=== PATIENT | female | born 1975 | race Caucasian/White ===

== ENCOUNTER 2017-01-17 20:02 | Emergency (ER) | payer MEDICAID ==
[2017-01-17 20:18] VITALS: RESP 20
--- NOTE | 2017-01-17 20:26 | C.PDOC ---
History Of Present Illness 41 yo femal,e hx o hld, presents with cp, she has had for has 3 weeks. pain is left sided, non radiating. no fevers, cough, n/v/d, sob, diaphoresis. or other complaints. pt states "she had a fast hr" today. Time Seen by Provider: 01/17/17 20:09 Chief Complaint (Nursing): Chest Pain Past Medical History Reviewed: Historical Data, Nursing Documentation, Vital Signs Vital Signs: Last Vital Signs Temp 97.9 F 01/17/17 21:26 Pulse 78 01/17/17 21:26 Resp 20 01/17/17 21:26 BP 105/61 01/17/17 21:26 Pulse Ox 99 01/17/17 21:26 - Medical History PMH: Hyperlipidemia, Hyperthyroidism, Hypothyroidism Family History: States: Unknown Family Hx - Social History Hx Alcohol Use: No Hx Substance Use: No - Immunization History Hx Tetanus Toxoid Vaccination: No Hx Influenza Vaccination: Yes Hx Pneumococcal Vaccination: No Review Of Systems Except As Marked, All Systems Reviewed And Found Negative. Cardiovascular: Positive for: Chest Pain, Palpitations Physical Exam - Physical Exam Appears: Well, No Acute Distress Skin: Normal Color, Warm, Dry Eye(s): bilateral: Normal Inspection, PERRL, EOMI Nose: Normal Throat: Normal Neck: Normal Chest: Tenderness (left sided point ttp) Cardiovascular: Rhythm Regular Respiratory: Normal Breath Sounds Gastrointestinal/Abdominal: Normal Exam Back: Normal Inspection Extremity: Normal ROM ED Course And Treatment - Laboratory Results Result Diagrams: 01/17/17 20:32 01/17/17 20:32 O2 Sat by Pulse Oximetry: 97 Medical Decision Making Medical Decision Making: cp r/o acs- labs imaging pending ekg nsr [address] twave changes normal itnerval.s atypcal pain, reproducable. for 21 days. ekg wnl, trop neg. low heart score. adviseoutpt f/u and return precautions Disposition - Disposition Referrals: [facility] [Outside] [facility] [Outside] Gil Steinberg MD [Staff Provider] - Disposition: HOME/ ROUTINE Disposition Time: 11:00 Condition: STABLE Additional Instructions: please see your doctor/specialist. return to er with worsening symptoms or concerns. Instructions: Chest Pain (ED) Forms: [employer] (Japanese) - Clinical Impression Clinical Impression: Chest pain
[2017-01-17 20:37] LABS: BASO # 0.1 K/uL (0.0-0.2); BASO % 2.4 % (0.0-2.0); EOS # 0.4 K/uL (0.0-0.7); EOS % 8.1 % (0.0-4.0); HEMATOCRIT 34.8 % (34.0-47.0); LYMPH # 2.2 K/uL (1.0-4.3); LYMPH % 41.5 % (20.0-40.0); MEAN CELL VOLUME 79.4 fL (81.0-99.0); MEAN CORPUSCULAR HEMOGLOBIN 25.5 pg (27.0-31.0); MEAN CORPUSCULAR HGB CONC 32.1 g/dL (33.0-37.0); MEAN PLATELET VOLUME 8.7 fL (7.2-11.7); MONO # 0.6 K/uL (0.0-0.8); MONO % 11.1 % (0.0-10.0); RED CELL DISTRIBUTION WIDTH 13.5 % (11.5-14.5); WHITE BLOOD COUNT 5.4 K/uL (4.8-10.8)
[2017-01-17 20:51] LABS: ALB/GLOB RATIO 1.3 (1.0-2.1); ALKALINE PHOSPHATASE 57 U/L (38-126); ALT/SGPT 32 U/L (9-52); AST/SGOT 20 U/L (14-36); BILIRUBIN,TOTAL 0.5 mg/dL (0.2-1.3); BLOOD UREA NITROGEN 23 mg/dL (7-17); CALCIUM 8.4 mg/dl (8.6-10.4); CARBON DIOXIDE 25 mmol/L (22-30); CHLORIDE 101 mmol/L (98-107); GFR AFRICAN-AMERICAN > 60; GLUCOSE,RANDOM 104 mg/dL (65-105); POTASSIUM 3.6 mmol/L (3.6-5.2); SODIUM 134 mmol/L (132-148); TOTAL PROTEIN 7.3 g/dL (6.3-8.3)
[2017-01-17 20:53] LABS: INR 1.2
[2017-01-17 20:54] LABS: RBC URINE 5 /hpf (0-3); URINE BACTERIA RARE (<OCC); URINE BILIRUBIN NEGATIVE (NEGATIVE); URINE BLOOD 1+ (NEGATIVE); URINE COLOR Yellow (YELLOW); URINE GLUCOSE (UA) NORMAL (Normal); URINE KETONE NEGATIVE (NEGATIVE); URINE LEUKOCYTE ESTERASE TRACE Leu/uL (Negative); URINE PROTEIN NEGATIVE (NEGATIVE); URINE UROBILINOGEN NORMAL mg/dL (0.2-1.0); WBC URINE 4 /hpf (0-5)
[2017-01-17 21:27] VITALS: BP 105/61; PULSE 78; TEMP 97.9
[2017-01-17 22:29] VITALS: O2SAT 97
--- NOTE | 2017-01-18 09:01 | RAD ---
HISTORY: chest pain COMPARISON: Comparison is made to 04/30/2016 TECHNIQUE: Chest PA and lateral FINDINGS: LUNGS: No evidence of new infiltrate or consolidation in the lungs. Slightly prominent lung markings are again noted. PLEURA: No significant pleural effusion identified. No pneumothorax apparent. CARDIOVASCULAR: Normal. OSSEOUS STRUCTURES: No significant abnormalities. VISUALIZED UPPER ABDOMEN: Normal. OTHER FINDINGS: None. IMPRESSION: No active disease.
== END 2017-01-17 21:25 | disposition home or self-care (01) ==
LOC: C.ER 20:02
DX: R07.9 Chest pain, unspecified (principal)

== ENCOUNTER 2018-03-06 08:19 | Emergency (ER) | payer MEDICAID ==
[2018-03-06 08:28] VITALS: TEMP 97.7
[2018-03-06] MEDS ORDERED: Magnesium Sulfate 1 gm in D5W 1 GM/100 ML BAG IVPB STA (09:09)
[2018-03-06] MEDS ORDERED: Sodium Chloride 0.9% 1,000 ML IV STA (09:09)
--- NOTE | 2018-03-06 09:10 | C.PDOC ---
History Of Present Illness 42 y/o female presents to the ER complaining of headache which has been present for the past 2 days. Patient reports that she has intermittent headaches which are usually relieved with NSAID's.Patient reports that her current headache is more intense than usual. She notes that the headache is worse with position changes. She has associated vertigo like dizziness and nausea which has been present since yesterday.Denies having fever, chills, vomiting, and abdominal pain. HPI was obtained via conflict resolution professional. Time Seen by Provider: 03/06/18 08:53 Chief Complaint (Nursing): Headache History Per: Neurology Epilepsy Physician History/Exam Limitations: no limitations Onset/Duration Of Symptoms: Days Current Symptoms Are (Timing): Still Present Severity: Moderate Past Medical History Reviewed: Historical Data, Nursing Documentation, Vital Signs Vital Signs: Last Vital Signs Temp 97.7 F 03/06/18 08:23 Pulse 70 03/06/18 08:52 Resp 15 03/06/18 08:52 BP 109/63 03/06/18 08:52 Pulse Ox 97 03/06/18 08:52 - Medical History PMH: Hyperlipidemia, Hyperthyroidism, Hypothyroidism Surgical History: No Surg Hx Family History: States: No Known Family Hx - Social History Hx Alcohol Use: No Hx Substance Use: No - Immunization History Hx Tetanus Toxoid Vaccination: No Hx Influenza Vaccination: Yes Hx Pneumococcal Vaccination: No Review Of Systems Except As Marked, All Systems Reviewed And Found Negative. Constitutional: Negative for: Fever, Chills Gastrointestinal: Positive for: Nausea. Negative for: Vomiting, Abdominal Pain Neurological: Positive for: Headache, Dizziness Physical Exam - Physical Exam Appears: Non-toxic, No Acute Distress Skin: Normal Color, Warm, Dry Head: Atraumatic, Normacephalic Eye(s): bilateral: Other (horizontal nystagmus) Cardiovascular: Rhythm Regular Respiratory: Other (NARD) Neurological/Psych: Oriented x3, Normal Speech, Normal Motor, Normal Sensation ED Course And Treatment O2 Sat by Pulse Oximetry: 97 (RA) Pulse Ox Interpretation: Normal Progress - Re-Evaluation Re-evaluation Note: 03/06/18 10:37 FEELS BETTER VSS. - Data Reviewed Data Reviewed: Old records Medical Decision Making Medical Decision Making: Plan: --Meclizine PO --IV Fluids --Toradol IV --Reglan IV --Magnesium Sulfate IV Disposition Counseled Patient/Family Regarding: Diagnosis, Need For Followup, Rx Given - Disposition Referrals: [facility] [Outside] [facility] [Outside] Disposition: HOME/ ROUTINE Disposition Time: 11:00 Condition: IMPROVED Prescriptions: Meclizine [Antivert] 50 mg PO TID PRN #21 tab PRN Reason: Dizziness Ondansetron ODT [Zofran ODT] 4 mg PO TID PRN #12 odt PRN Reason: Nausea/Vomiting Instructions: Vertigo (a Type of Dizziness) (DC) Forms: [employer] (Hebrew) - Clinical Impression Clinical Impression: Headache, Vertigo - Scribe Statement The provider has reviewed the documentation as recorded by the Asad Amaro Provider Attestation: All medical record entries made by the Viancaibariel were at my direction and personally dictated by me. I have reviewed the chart and agree that the record accurately reflects my personal performance of the history, physical exam, medical decision making, and the department course for this patient. I have also personally directed, reviewed, and agree with the discharge instructions and disposition.
[2018-03-06] MEDS ORDERED: Magnesium Sulfate 1 gm in D5W 1 GM/100 ML BAG IVPB ONE (09:20)
[2018-03-06] MEDS ORDERED: Sodium Chloride 0.9% 1,000 ML ONE (09:20)
[2018-03-06 10:32] VITALS: RESP 20
[2018-03-06 10:51] VITALS: BP 103/69; PULSE 67; O2SAT 98
== END 2018-03-06 11:20 | disposition home or self-care (01) ==
LOC: C.ER 08:19
DX: R51 Headache (principal); R42 Dizziness and giddiness; E78.5 Hyperlipidemia, unspecified
CPT/HCPCS: 82948; 96365; 96375; 99285; J1885; J2765; J3475; J7030